=== PATIENT | female | born 1995 | race Caucasian/White ===

== ENCOUNTER 2016-07-29 11:33 | Emergency (ER) | payer MEDICAID ==
[2016-07-29 11:46] VITALS: BP 106/73
--- NOTE | 2016-07-29 12:37 | EDM.PDOC ---
ED HPI RENAL/ - General Chief Complaint: Genitourinary Problem Stated Complaint: PAINFUL URINATION Time Seen by Provider: 07/29/16 11:47 Source of Information: Reports: Patient History Limitations: Reports: No limitations - History of Present Illness INITIAL COMMENTS - FREE TEXT/NARRATIVE: Patient presents for evaluation treatment of dysuria. Patient reports that her symptoms have been present for about the last 2 weeks. She reports that this first started with malodorous, dark urine. She states that she then developed dysuria. She states she is drinking water and cranberry juice without any improvement. She noticed some sharp stabbing pain in the right lower quadrant radiating across her right flank and into her right back yesterday; none today. She has no current abdominal pain. She reports only current suprapubic pain. She denies any fevers, chills, nausea, vomiting, hematuria, vaginal discharge, diarrhea or constipation. She reports that she has some back pain but nothing out of the ordinary. She reports her last menstrual period was in May sometime. She reports a chance of . Timing/Duration: Reports: Week(s): (2) Location: Reports: suprapubic Associated Symptoms: Reports: dysuria. Denies: vaginal discharge, fever/chills , abdominal pain, nausea/vomiting, constipation, diarrhea - Related Data Allergies/ADRs: Allergies Allergy/AdvReac Type Severity Reaction Status Date / Time No Known Allergies Allergy Verified 07/29/16 11:45 Home Meds: Home Meds Nitrofurantoin Monohyd/M-Cryst [Macrobid 100 mg Capsule] 100 mg PO BID #14 capsule 07/29/16 [Rx] Phenazopyridine [Pyridium] 100 mg PO TID #9 tablet 07/29/16 [Rx] Past Medical History - Past Health History Medical/Surgical History: Denies Medical/Surgical History HEENT History: Reports: Impaired vision Cardiovascular History: Reports: None Respiratory History: Reports: None Gastrointestinal History: Reports: None Genitourinary History: Reports: Pyelonephritis, Other (see below) Other Genitourinary History: recurrent in childhood 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 Denies: discharge, hematuria Musculoskeletal: Reports: back pain ED EXAM, RENAL/ - Physical Exam Exam: See Below Exam Limited By: No limitations General Appearance: alert, WD/WN, no apparent distress Respiratory/Chest: no respiratory distress, lungs clear, normal breath sounds Cardiovascular: normal peripheral pulses, regular rate, rhythm, no murmur GI/Abdominal: normal bowel sounds, soft, non tender Back Exam: No: CVA tenderness (L), CVA tenderness (R) Neurological: alert, oriented, normal cognition Psychiatric: normal affect, normal mood Skin Exam: Warm, Dry, Normal color Course - Vital Signs Last Recorded V/S: Last Vital Signs Temp 36.5 C 07/29/16 11:42 Pulse 69 07/29/16 11:42 Resp 16 07/29/16 11:42 BP 106/73 07/29/16 11:42 Pulse Ox 100 07/29/16 11:42 - Orders/Labs/Meds Orders: Active Orders 24 hr Category Date Time Status CULTURE URINE [RM] Stat Lab 07/29/16 12:19 Ordered Labs: Laboratory Tests 07/29/16 07/29/16 Range/Units 12:00 12:00 Urine Color Yellow (Yellow) Urine Appearance Clear (Clear) Urine pH 6.5 (5.0-8.0) Ur Specific [place] 1.015 (1.005-1.030) Urine Protein Negative (Negative) Urine Glucose (UA) Negative (Negative) Urine Ketones Negative (Negative) Urine Occult Blood Negative (Negative) Urine Nitrite Negative (Negative) Urine Bilirubin Negative (Negative) Urine Urobilinogen 0.2 (0.2-1.0) Ur Leukocyte Esterase Trace H (Negative) Urine RBC Not seen (0-5) /hpf Urine WBC 0-5 (0-5) /hpf Ur Epithelial Cells 0-5 (0-5) /hpf Urine Bacteria Few (FEW) /hpf Urine Mucus Not seen (FEW) /hpf Urine HCG, Qual Negative (NEGATIVE) - Re-Assessments/Exams Free Text/Narrative Re-Assessment/Exam: 07/29/16 12:45 Ua had trace leuks. Negative for blood, nitrites, glucose and ketones. HCG is negative. Urine sent for culture. Will discharge home. Discharge instructions as documented. Departure - Departure Time of Disposition: 12:46 Disposition: Home, Self-Care 01 Condition: good Clinical Impression: UTI, Urinary tract infectious disease Prescriptions: Nitrofurantoin Monohyd/M-Cryst [Macrobid 100 mg Capsule] 100 mg PO BID #14 capsule Phenazopyridine [Pyridium] 100 mg PO TID #9 tablet Instructions: Urinary Tract Infection, Adult, [id number] Referrals: PCP,None [Ordering Only Provider] - Forms: ED Department Discharge Additional Instructions: Take the antibiotic as prescribed. 1 tab PO bid x 7 days. Pyridium tid x 3 days. Drink plenty of fluids. Follow-up with your PCP as needed. Please return to the ER should your symptoms change or worsen. - My Orders Last 24 Hours: My Active Orders 07/29/16 12:19 CULTURE URINE [RM] Stat - Assessment/Plan Last 24 Hours: My Active Orders 07/29/16 12:19 CULTURE URINE [RM] Stat
== END 2016-07-29 13:00 | disposition home or self-care (01) ==
LOC: JD.ED 11:33
DX: N39.0 Urinary tract infection, site not specified (principal)
CPT/HCPCS: 81001; 81025; 87086; 87088; 87186; 99283

== ENCOUNTER 2016-08-16 18:37 | Emergency (ER) | payer MEDICAID ==
[2016-08-16 19:09] VITALS: BP 115/74
--- NOTE | 2016-08-16 20:07 | EDM.PDOC ---
ED HPI RENAL/ - General Chief Complaint: Genitourinary Problem Stated Complaint: POSS KIDNEY INFECTION Time Seen by Provider: 08/16/16 20:06 Source of Information: Reports: Patient History Limitations: Reports: No limitations - History of Present Illness INITIAL COMMENTS - FREE TEXT/NARRATIVE: Patient presents for evaluation and treatment of urinary tract infection symptoms. She reports that her symptoms have been going on for the last 3 days. She currently complains of dysuria, darker urine and foul-smelling urine. she also reports flank pain. She denies any hematuria, fevers, nausea or vomiting. Patient reports that she has some chills but has been ill with colds and runny noses recently and feels that that is more likely the cause. Patient was seen by myself in the ER earlier this month. At that time she had a urinary tract infection was started on Macrobid. She states that she took this to completion. She states that she has been urinating after intercourse and wiping front to back. She is unsure why she is getting frequent urinary tract infections.. - Related Data Allergies/ADRs: Allergies Allergy/AdvReac Type Severity Reaction Status Date / Time No Known Allergies Allergy Verified 07/29/16 11:45 Home Meds: Home Meds Nitrofurantoin Monohyd/M-Cryst [Macrobid 100 mg Capsule] 100 mg PO BID #14 capsule 07/29/16 [Rx] Phenazopyridine [Pyridium] 100 mg PO TID #9 tablet 07/29/16 [Rx] Ciprofloxacin [Ciprofloxacin HCl] 500 mg PO BID #14 tablet 08/16/16 [Rx] Past Medical History - Past Health History Medical/Surgical History: Denies Medical/Surgical History HEENT History: Reports: Impaired vision Cardiovascular History: Reports: None Respiratory History: Reports: None Gastrointestinal History: Reports: None Genitourinary History: Reports: Pyelonephritis, Other (see below) 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 Denies: fever HEENT: Reports: Rhinitis GI/Abdominal: Denies: Nausea, Vomiting : Reports: dysuria, flank pain, other (Urine is darker and more foul-smelling than normal.). Denies: hematuria ED EXAM, RENAL/ - Physical Exam Exam: See Below Exam Limited By: No limitations General Appearance: alert, WD/WN, no apparent distress Respiratory/Chest: no respiratory distress, lungs clear, normal breath sounds Cardiovascular: normal peripheral pulses, regular rate, rhythm, no murmur GI/Abdominal: normal bowel sounds, soft, non tender Back Exam: normal inspection. No: CVA tenderness (L), CVA tenderness (R) Psychiatric: normal affect, normal mood Skin Exam: Warm, Dry Course - Vital Signs Last Recorded V/S: Last Vital Signs Temp 36.1 C 08/16/16 19:08 Pulse 68 08/16/16 19:08 Resp 20 08/16/16 19:08 BP 115/74 08/16/16 19:08 Pulse Ox 98 08/16/16 19:08 - Orders/Labs/Meds Labs: Laboratory Tests 08/16/16 Range/Units 19:30 Urine Color Yellow (Yellow) Urine Appearance Slt cloudy H (Clear) Urine pH 6.0 (5.0-8.0) Ur Specific [place] > or = 1.030 (1.005-1.030) Urine Protein 1+ H (Negative) Urine Glucose (UA) Negative (Negative) Urine Ketones Negative (Negative) Urine Occult Blood Negative (Negative) Urine Nitrite Positive H (Negative) Urine Bilirubin Negative (Negative) Urine Urobilinogen 0.2 (0.2-1.0) Ur Leukocyte Esterase Trace H (Negative) Urine RBC 0-5 (0-5) /hpf Urine WBC 30-40 H (0-5) /hpf Ur Squamous Epith Cells 5-10 H (0-5) /hpf Urine Bacteria Many H (FEW) /hpf Urine Mucus Few (FEW) /hpf - Re-Assessments/Exams Free Text/Narrative Re-Assessment/Exam: 08/16/16 20:21 UA has positive nitrites, trace leukocytes, many bacteria and 1+ protein. I will treat the patient for urinary tract infection. Started on ciprofloxacin as she was recently on Macrobid. I will some urine for culture. Discharge instructions as documented. Departure - Departure Time of Disposition: 20:23 Disposition: Home, Self-Care 01 Condition: good Clinical Impression: UTI, Urinary tract infectious disease Prescriptions: Ciprofloxacin [Ciprofloxacin HCl] 500 mg PO BID #14 tablet Instructions: Urinary Tract Infection, Adult Referrals: PCP,None [Ordering Only Provider] - Forms: ED Department Discharge Additional Instructions: Take the ciprofloxacin one tab twice a day for 7 days as prescribed. Drink plenty of fluids. Follow up with your primary care provider if you continue to have frequent urinary tract infections. Recommend Lida Painter at the [facility]. call [phone] to schedule with her. To prevent urinary tract infections next are you wiping front to back and urinate after intercourse. Please return to the ER should your symptoms change or worsen.
== END 2016-08-16 20:37 | disposition home or self-care (01) ==
LOC: JD.ED 18:37
DX: N39.0 Urinary tract infection, site not specified (principal)
CPT/HCPCS: 81001; 87086; 87088; 87186; 99283

== ENCOUNTER 2017-05-21 21:12 | Emergency (ER) | payer MEDICAID ==
[2017-05-21 21:34] VITALS: BP 99/72
--- NOTE | 2017-05-21 22:31 | EDM.PDOC ---
ED HPI GENERAL MEDICAL PROBLEM - General Chief Complaint: Back Pain or Injury Stated Complaint: BAD LOWER BACK PAIN Time Seen by Provider: 05/21/17 22:08 Source of Information: Reports: Patient History Limitations: Reports: No Limitations - History of Present Illness INITIAL COMMENTS - FREE TEXT/NARRATIVE: 21-year-old female presents for evaluation treatment of low back pain. Reportedly patient has had problems with low back pain for quite some time. She has seen a chiropractor in the past without much symptom relief. Reportedly the last day and a half the back pain has substantially worsened. She reports it is a strong pain in her lower back that is worse with movement. She has reports worse with standing. She has tried [id number] Motrin, Aleve, massage and heat wraps without any relief. She reports she did start a new job recently and has been lifting more than normal. She denies any fevers, coughs, dysuria, hematuria, change in urine odor color, bowel incontinence, urinary incontinence or numbness or tingling. She denies any radiation down to her legs. Patient reports she is currently on her menstrual cycles started yesterday. She states she did take a test about one week ago and was negative. Patient also complains of cramps in her bilateral arms and legs. Reports that she gets daily cramps in her lower legs from her knees down to her feet and from her elbows down into to her hands. States they last a few hours before they resolve on her own. She has never seen anybody about these. Primary care provider is Micki Bledsoe. Lower Back Pain Score (Numeric/FACES): 8 - Related Data Allergies Allergy/AdvReac Type Severity Reaction Status Date / Time No Known Allergies Allergy Verified 07/29/16 11:45 Home Meds: Home Meds Orphenadrine [Norflex] 100 mg PO BID PRN #20 tab.er 05/21/17 [Rx] Past Medical History - Past Health History Medical/Surgical History: Denies Medical/Surgical History HEENT History: Reports: Impaired Vision Cardiovascular History: Reports: None Respiratory History: Reports: None Gastrointestinal History: Reports: None Genitourinary History: Reports: Pyelonephritis, UTI, Recurrent Other Genitourinary History: recurrent in childhood 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: Musculoskeletal History: Reports: Back Pain, Chronic Oncologic (Cancer) History: Reports: None Social & Family History - Family History Family Medical History: Noncontributory - Tobacco Use Smoking Status *Q: Never Smoker Second Hand Smoke Exposure: No - Caffeine Use Caffeine Use: Reports: Coffee, Soda, Tea - Alcohol Use Days Per Week of Alcohol Use: 0 - Recreational Drug Use Recreational Drug Use: No ED ROS GENERAL - Review of Systems Review Of Systems: See Below Constitutional: Denies: Fever Respiratory: Denies: Cough GI/Abdominal: Denies: Stool Incontinence : Denies: Dysuria, Incontinence Musculoskeletal: Reports: Back Pain (low back), Muscle Pain (bilateral forearms and legs) Neurological: Denies: Numbness, Tingling ED EXAM,LOWER BACK PAIN/INJURY - Physical Exam Exam: See Below Exam Limited By: No Limitations General Appearance: Alert, WD/WN, No Apparent Distress, Obese Nose: Normal Inspection Throat/Mouth: Normal Inspection Neck: Normal Inspection, Supple, Non-Tender, Full Range of Motion Respiratory/Chest: No Respiratory Distress, Lungs Clear, Normal Breath Sounds Cardiovascular: Normal Peripheral Pulses, Regular Rate, Rhythm, No Murmur GI/Abdominal: Soft, Non-Tender Back Exam: Normal Inspection, Full Range of Motion, Paraspinal Tenderness ( bilateral SI joints). No: Vertebral Tenderness Extremities: Normal Inspection, Normal Range of Motion, Normal Capillary Refill Neurological: Alert, Normal Dorsiflexion, Normal Plantar Flexion, Normal Gait Psychiatric: Normal Affect, Normal Mood Skin Exam: Warm, Dry, Normal Color Course - Vital Signs Last Recorded V/S: Last Vital Signs Temp 36.4 C 05/21/17 21:32 Pulse 77 05/21/17 21:32 Resp 20 05/21/17 21:32 BP 99/72 05/21/17 21:32 Pulse Ox 99 05/21/17 21:32 - Orders/Labs/Meds Labs: Laboratory Tests 05/21/17 Range/Units 22:45 Sodium 142 (136-145) mEq/L Potassium 3.5 (3.5-5.1) mEq/L Chloride 106 (98-107) mEq/L Carbon Dioxide 29 (21-32) mEq/L Anion Gap 10.5 (5-15) BUN 10 (7-18) mg/dL Creatinine 0.9 (0.55-1.02) mg/dL Est Cr Clr Drug Dosing 82.48 mL/min Estimated GFR (MDRD) > 60 (>60) mL/min BUN/Creatinine Ratio 11.1 L (14-18) Glucose 78 (74-106) mg/dL Calcium 9.5 (8.5-10.1) mg/dL Magnesium 1.9 (1.8-2.4) mg/dl - Re-Assessments/Exams Free Text/Narrative Re-Assessment/Exam: 05/21/17 23:32 Offered an xray of the lumbar spine, however, I educated her this would likely not change my treatment plan and given she has had no injury to the back will likely not show an etiology for her pain. She therefore decided against obtaining the xray. I reviewed the labs with the patient. She is likely getting muscle cramps from dehydration and encouraged her to drink more. Follow-up with her PCP. Discharge instructions as documented. Departure - Departure Time of Disposition: 23:27 Disposition: Home, Self-Care 01 Condition: Good Clinical Impression: Low back pain - Discharge Information Prescriptions: Orphenadrine [Norflex] 100 mg PO BID PRN #20 tab.er PRN Reason: Muscle Spasm Instructions: Back Pain, Adult Referrals: Micki Bledsoe PA-C [Primary Care Provider] - Forms: ED Department Discharge Additional Instructions: Take the Norflex 1 tab twice a day as needed for muscle spasm. Take over-the- counter Tylenol or Motrin as needed for additional pain relief. Norflex can make you drowsy. Do not drive or operative machinery until you know how this medication will affect you. make sure you are drinking plenty of fluids. Follow-up with your primary care provider next week as planned. Please return to the ER if your symptoms change or worsen.
== END 2017-05-21 23:37 | disposition home or self-care (01) ==
LOC: JD.ED 21:12
DX: M54.5 Low back pain (principal)
CPT/HCPCS: 36415; 80048; 83735; 99283

== ENCOUNTER 2017-06-02 21:28 | Emergency (ER) | payer MEDICAID ==
[2017-06-02 22:26] VITALS: BP 115/98
[2017-06-02] MEDS ORDERED: Cephalexin 500 MG Cap PO ONE (22:28)
[2017-06-02] MEDS ORDERED: Doxycycline 100 MG Cap PO ONE (22:28)
--- NOTE | 2017-06-02 22:34 | EDM.PDOC ---
ED HPI GENERAL MEDICAL PROBLEM - General Chief Complaint: Skin Complaint Stated Complaint: RASH OVER BODY Time Seen by Provider: 06/02/17 22:27 Source of Information: Reports: Patient, Family (friend) History Limitations: Reports: No Limitations - History of Present Illness INITIAL COMMENTS - FREE TEXT/NARRATIVE: 21-year-old female presents the ED with a generalized erythematous rash that seems to be spreading. She has a new tattoo on her right forearm and she states rash seemed to start on her right forearm and then spread to the rest of her body. It is burning in quality. Is red and inflamed and maculopapular. She is not immunocompromise to her knowledge. Onset: Gradual Onset Date: 05/31/17 Duration: Day(s): (Started 2-3 days ago.) Location: Reports: Back (Right lower back and flank area.), Upper Extremity, Right Right Arm Pain Score (Numeric/FACES): 5 - Related Data Allergies Allergy/AdvReac Type Severity Reaction Status Date / Time No Known Allergies Allergy Verified 07/29/16 11:45 Home Meds: Home Meds Doxycycline [Vibramycin] 100 mg PO Q12HR #20 cap 06/02/17 [Rx] Sulfamethoxazole/Trimethoprim [Sulfamethoxazole-Tmp Ds Tablet] 1 each PO BID # 14 tablet 06/02/17 [Rx] Past Medical History - Past Health History Medical/Surgical History: Denies Medical/Surgical History HEENT History: Reports: Impaired Vision Cardiovascular History: Reports: None Respiratory History: Reports: None Gastrointestinal History: Reports: None Genitourinary History: Reports: Pyelonephritis, UTI, Recurrent Other Genitourinary History: recurrent in childhood 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: Musculoskeletal History: Reports: Back Pain, Chronic Oncologic (Cancer) History: Reports: None Social & Family History - Family History Family Medical History: Noncontributory - Tobacco Use Smoking Status *Q: Never Smoker Second Hand Smoke Exposure: No - Caffeine Use Caffeine Use: Reports: Coffee, Energy Drinks, Soda, Tea - Alcohol Use Days Per Week of Alcohol Use: 0 - Recreational Drug Use Recreational Drug Use: No - Living Situation & Occupation Living situation: Reports: Single Occupation: Employed ED ROS GENERAL - Review of Systems Review Of Systems: See Below Constitutional: Reports: No Symptoms HEENT: Reports: No Symptoms Respiratory: Reports: No Symptoms Cardiovascular: Reports: No Symptoms Endocrine: Reports: No Symptoms GI/Abdominal: Reports: No Symptoms : Reports: No Symptoms Musculoskeletal: Reports: No Symptoms Skin: Reports: No Symptoms Neurological: Reports: No Symptoms Psychiatric: Reports: No Symptoms Hematologic/Lymphatic: Reports: No Symptoms Immunologic: Reports: No Symptoms ED EXAM, SKIN/RASH Exam: See Below Exam Limited By: No Limitations General Appearance: Alert, WD/WN, No Apparent Distress Extremities: Other (Patient has a new tattoo on her right forearm and has multiple other tattoos on her arms.) Skin: Other ( is a maculopapular very erythematous reddened rash right forearm and right back primarily. There are some pustules evident. There is no active draining from these lesions. These are secondary to staph aureus folliculitis.) Course - Vital Signs Last Recorded V/S: Last Vital Signs Temp 36.2 C 06/02/17 22:24 Pulse 81 06/02/17 22:24 Resp 20 06/02/17 22:24 BP 115/98 H 06/02/17 22:24 Pulse Ox 100 06/02/17 22:24 - Orders/Labs/Meds Meds: Medications Discontinued Medications Generic Name Dose Route Start Last Admin Trade Name Freq PRN Reason Stop Dose Admin Cephalexin 1,000 mg 06/02/17 22:28 Keflex PO 06/02/17 22:29 ONETIME ONE Doxycycline Hyclate 200 mg 06/02/17 22:28 Vibramycin PO 06/02/17 22:29 ONETIME ONE - Radiology Interpretation Free Text/Narrative:: 21-year-old female presents to the ED with a skin rash getting worse over the last 2 and half days. She had a tattoo on May 31 on her right arm. Subsequently developed this erythematous maculopapular slightly pustular rash right forearm and right flank back and abdominal wall. Many of these have pustules compatible with a folliculitis. Rash is maculopapular and burning in quality. She'll be treated with doxycycline 100 mg twice daily for 10 days and Bactrim double strength 1 tablet twice a day for 7 days to clear up infection. Initial doses of antibiotic in the ED were 200 mg of doxycycline per ora and cephalexin 1 g per ora. Departure - Departure Time of Disposition: 22:29 Disposition: Home, Self-Care 01 Condition: Fair Clinical Impression: Staphylococcus aureus superficial folliculitis - Discharge Information Prescriptions: Doxycycline [Vibramycin] 100 mg PO Q12HR #20 cap Sulfamethoxazole/Trimethoprim [Sulfamethoxazole-Tmp Ds Tablet] 1 each PO BID # 14 tablet Referrals: Micki Bledsoe PA-C [Primary Care Provider] - Forms: ED Department Discharge Additional Instructions: Evaluation in the emergency room today in regards to development of a red follicular rash particularly on the arms and right flank and lower back. These have evidence of the underlying skin infection caused by Staphylococcus aureus which is on everybody's skin. It is spread around her body by toweling off after showering. This is how it spreads to different parts of her body. Treatment in is antibiotics doxycycline 100 mg twice daily for 10 days and Bactrim double strength tablet twice daily for 7 days. You should notice a dramatic improvement in 72 hours time. May take Motrin 600 mg every 6 hours for burning pain discomfort if needed.
== END 2017-06-02 22:49 | disposition home or self-care (01) ==
LOC: JD.ED 21:28
DX: L73.9 Follicular disorder, unspecified (principal); B95.61 Methicillin susceptible Staphylococcus aureus infection as the cause of diseases classified elsewhere
CPT/HCPCS: 99283; A9270

== ENCOUNTER 2017-07-04 13:46 | Emergency (ER) | payer MEDICAID ==
[2017-07-04 13:55] VITALS: BP 121/76
--- NOTE | 2017-07-04 14:24 | EDM.PDOC ---
ED HPI GENERAL MEDICAL PROBLEM - General Chief Complaint: Genitourinary Problem Stated Complaint: POSS UTI Time Seen by Provider: 07/04/17 14:24 Source of Information: Reports: Patient History Limitations: Reports: No Limitations - History of Present Illness INITIAL COMMENTS - FREE TEXT/NARRATIVE: 21-year-old female presents to the ED with dysuria urgency and frequency with no hematuria for the better part of a week. She states that she is prone to urinary tract infection. She believes she is . Last menstrual period was around May 19 and her cycles are usually pretty regular. Therefore she missed her cycle in May. test all of which were positive. She would be 3 para 2 if she is this time. It is pregnancies went over term but she delivered vaginally without any complications. She denies any fever or chills. She is developing right flank pain with a slight colicky component suggesting that she is developing a upper urinary tract infection. Appetite remains good. Onset: Gradual Onset Date: 06/27/17 Duration: Day(s): Location: Reports: Abdomen, Back (Suprapubic pressure discomfort with urgency frequency and dysuria now pain rating up her right flank. Right flank to just below her kidney.) Quality: Reports: Other (Urinary) Severity: Moderate (frequency with urgency and burning. 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: Other (see below) Other Treatments METAL FABRICATING SUPERVISOR: cranberry juice and water - Related Data Allergies Allergy/AdvReac Type Severity Reaction Status Date / Time No Known Allergies Allergy Verified 07/29/16 11:45 Home Meds: Home Meds Nitrofurantoin Monohyd/M-Cryst [Macrobid 100 mg Capsule] 100 mg PO BID #14 capsule 07/04/17 [Rx] PNV95/Ferrous Fumarate/FA [ Tablet] 1 tab PO DAILY 07/04/17 [History] Past Medical History - Past Health History Medical/Surgical History: Denies Medical/Surgical History HEENT History: Reports: Impaired Vision Cardiovascular History: Reports: None Respiratory History: Reports: None Gastrointestinal History: Reports: None Genitourinary History: Reports: Pyelonephritis, UTI, Recurrent Other Genitourinary History: recurrent in childhood MANAGER BALANCE History: Reports: (Suspect with 3 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.) : 3 (If is confirmed today.) Para: 2 (Delivered both previous children vaginally without complication) Musculoskeletal History: Reports: Back Pain, Chronic Oncologic (Cancer) History: Reports: None Social & Family History - Family History Family Medical History: Noncontributory - Tobacco Use Smoking Status *Q: Never Smoker Second Hand Smoke Exposure: No - Caffeine Use Caffeine Use: Reports: Coffee, Tea - Alcohol Use Days Per Week of Alcohol Use: 0 - Recreational Drug Use Recreational Drug Use: No - Living Situation & Occupation Living situation: Reports: Single Occupation: Employed ED ROS GENERAL - Review of Systems Review Of Systems: See Below Constitutional: Reports: Fatigue. Denies: Fever, Chills, Malaise, Weakness, Decreased Appetite, Weight Loss HEENT: Reports: No Symptoms Respiratory: Reports: No Symptoms Cardiovascular: Reports: No Symptoms Endocrine: Reports: Fatigue GI/Abdominal: Reports: Other : Reports: Dysuria, Frequency, Urgency, Other Musculoskeletal: Reports: Back Pain Skin: Reports: No Symptoms Neurological: Reports: No Symptoms Psychiatric: Reports: No Symptoms ED EXAM, RENAL/ - Physical Exam Exam: See Below Exam Limited By: No Limitations General Appearance: Alert, WD/WN, No Apparent Distress, Other (Afebrile with normal vital signs) Eye Exam: Bilateral Eye: Normal Inspection Respiratory/Chest: No Respiratory Distress, Lungs Clear, Normal Breath Sounds, Chest Non-Tender, Respiratory Distress Cardiovascular: Normal Peripheral Pulses, Regular Rate, Rhythm, No Edema, No Murmur, No Rub GI/Abdominal: Normal Bowel Sounds, Soft, Non-Tender, No Organomegaly, No Abnormal Bruit, No Mass, Pelvis Stable Back Exam: No: CVA Tenderness (L), CVA Tenderness (R) Extremities: Normal Inspection, Normal Range of Motion, Non-Tender, No Pedal Edema Neurological: Oriented, CN II-XII Intact, Normal Cognition, Normal Gait Psychiatric: Normal Affect, Normal Mood Skin Exam: Warm, Dry, Intact, Normal Color, No Rash Course - Vital Signs Last Recorded V/S: Last Vital Signs Temp 35.7 C 02/04/18 13:54 Pulse 93 07/04/17 13:54 Resp 20 07/04/17 13:54 BP 121/76 07/04/17 13:54 Pulse Ox 100 07/04/17 13:54 - Orders/Labs/Meds Orders: Active Orders 24 hr Category Date Time Status CULTURE URINE [RM] Stat Lab 07/04/17 17:08 Uncollected Labs: Laboratory Tests 07/04/17 07/04/17 07/04/17 Range/Units 14:35 14:56 14:56 WBC 13.87 H (3.98-10.04) K/mm3 RBC 4.80 (3.98-5.22) M/mm3 Hgb 14.0 (11.2-15.7) gm/L Hct 42.1 (34.1-44.9) % MCV 87.7 (79.4-94.8) fl MCH 29.2 (25.6-32.2) pg MCHC 33.3 (32.2-35.5) g/dl RDW Std Deviation 43.1 (36.4-46.3) fL Plt Count 323 (182-369) K/mm3 MPV 10.9 (9.4-12.3) fl Neutrophils % (Manual) 86 H (40-60) % Band Neutrophils % 0 (0-10) % Lymphocytes % (Manual) 9 L (20-40) % Atypical Lymphs % 2 % Monocytes % (Manual) 2 (2-10) % Eosinophils % (Manual) 1 (0.7-5.8) % Basophils % (Manual) 0 L (0.1-1.2) Platelet Estimate Adequate Plt Morphology Comment Normal RBC Morph Comment Normal Sodium 138 (136-145) mEq/L Potassium 3.6 (3.5-5.1) mEq/L Chloride 103 (98-107) mEq/L Carbon Dioxide 27 (21-32) mEq/L Anion Gap 11.6 (5-15) BUN 9 (7-18) mg/dL Creatinine 0.7 (0.55-1.02) mg/dL Est Cr Clr Drug Dosing 106.05 mL/min Estimated GFR (MDRD) > 60 (>60) mL/min BUN/Creatinine Ratio 12.9 L (14-18) Glucose 80 (74-106) mg/dL Calcium 9.3 (8.5-10.1) mg/dL Total Bilirubin 0.3 (0.2-1.0) mg/dL AST 24 (15-37) U/L ALT 30 (14-59) U/L Alkaline Phosphatase 85 (46-116) U/L Total Protein 8.1 (6.4-8.2) g/dl Albumin 3.9 (3.4-5.0) g/dl Globulin 4.2 gm/dL Albumin/Globulin Ratio 0.9 L (1-2) HCG, Qual (NEGATIVE) HCG, Quant 15341.0 mIU/mL Urine Color Yellow (Yellow) Urine Appearance Slt cloudy H (Clear) Urine pH 7.5 (5.0-8.0) Ur Specific [place] 1.020 (1.005-1.030) Urine Protein Trace H (Negative) Urine Glucose (UA) Negative (Negative) Urine Ketones 1+ H (Negative) Urine Occult Blood Negative (Negative) Urine Nitrite Negative (Negative) Urine Bilirubin Negative (Negative) Urine Urobilinogen 0.2 (0.2-1.0) Ur Leukocyte Esterase 1+ H (Negative) Urine RBC 0-5 (0-5) /hpf Urine WBC 20-30 H (0-5) /hpf Ur Epithelial Cells 0-5 (0-5) /hpf Urine Bacteria Many H (FEW) /hpf Urine Mucus Not seen (FEW) /hpf 07/04/17 Range/Units 14:56 WBC (3.98-10.04) K/mm3 RBC (3.98-5.22) M/mm3 Hgb (11.2-15.7) gm/L Hct (34.1-44.9) % MCV (79.4-94.8) fl MCH (25.6-32.2) pg MCHC (32.2-35.5) g/dl RDW Std Deviation (36.4-46.3) fL Plt Count (182-369) K/mm3 MPV (9.4-12.3) fl Neutrophils % (Manual) (40-60) % Band Neutrophils % (0-10) % Lymphocytes % (Manual) (20-40) % Atypical Lymphs % % Monocytes % (Manual) (2-10) % Eosinophils % (Manual) (0.7-5.8) % Basophils % (Manual) (0.1-1.2) Platelet Estimate Plt Morphology Comment RBC Morph Comment Sodium (136-145) mEq/L Potassium (3.5-5.1) mEq/L Chloride (98-107) mEq/L Carbon Dioxide (21-32) mEq/L Anion Gap (5-15) BUN (7-18) mg/dL Creatinine (0.55-1.02) mg/dL Est Cr Clr Drug Dosing mL/min Estimated GFR (MDRD) (>60) mL/min BUN/Creatinine Ratio (14-18) Glucose (74-106) mg/dL Calcium (8.5-10.1) mg/dL Total Bilirubin (0.2-1.0) mg/dL AST (15-37) U/L ALT (14-59) U/L Alkaline Phosphatase (46-116) U/L Total Protein (6.4-8.2) g/dl Albumin (3.4-5.0) g/dl Globulin gm/dL Albumin/Globulin Ratio (1-2) HCG, Qual Positive H (NEGATIVE) HCG, Quant mIU/mL Urine Color (Yellow) Urine Appearance (Clear) Urine pH (5.0-8.0) Ur Specific [place] (1.005-1.030) Urine Protein (Negative) Urine Glucose (UA) (Negative) Urine Ketones (Negative) Urine Occult Blood (Negative) Urine Nitrite (Negative) Urine Bilirubin (Negative) Urine Urobilinogen (0.2-1.0) Ur Leukocyte Esterase (Negative) Urine RBC (0-5) /hpf Urine WBC (0-5) /hpf Ur Epithelial Cells (0-5) /hpf Urine Bacteria (FEW) /hpf Urine Mucus (FEW) /hpf Meds: Medications Discontinued Medications Generic Name Dose Route Start Last Admin Trade Name Freq PRN Reason Stop Dose Admin Nitrofurantoin Macrocrystals 100 mg 07/04/17 16:41 07/04/17 16:59 Macrobid PO 07/04/17 16:42 100 mg ONETIME ONE Administration - Radiology Interpretation Free Text/Narrative:: 21-year-old female presents the ED with reported history of urinary frequency urgency and dysuria for the better part of a week. She denies fever or chills. She is having some mild right flank pain starting in her low back radiating up towards the kidney suggesting developing urinary tract infection the upper urinary tract. She has no costovertebral angle tenderness on palpation. Suprapubic tenderness only on examination of the abdomen. She also believes she is with 3 positive home. She test in the last week. Last trimester. Was May 19. Is usually pretty regular not time. She has had 2 previous term pregnancies delivered vaginally. Plan urinalysis. Labs will be CBC CMP and a hCG both qualitative and quantitative. - Re-Assessments/Exams Free Text/Narrative Re-Assessment/Exam: 07/04/17 16:38 Lab tests are back. White count is 13.87 i.e. elevated. White count is 86% neutrophils and no bands. Hemoglobin is 14.0 with hematocrit of 42.1 platelet counts 323,000. Sodium is 138 with a potassium of 3.6. Cord 103 with a bicarbonate 27. Anion gap is 11.6. BUNs 9 with a creatinine of 0.7. Estimated GFR is greater than 60. Glucose was 80. Calcium is 9.3. Liver function normal. HCG is positive and quantitative beta-hCG is 30,833 which correlates with a 5-6 week gestation.. Urinalysis shows trace protein 1+ ketones 1+ leukocyte esterase and 20-30 white blood cells per high-power field and many bacteria appreciated. Urine culture ordered. Departure - Departure Time of Disposition: 16:44 Disposition: Home, Self-Care 01 Condition: Fair Clinical Impression: First trimester , Urinary tract infection affecting care of mother in first trimester, antepartum - Discharge Information Prescriptions: Nitrofurantoin Monohyd/M-Cryst [Macrobid 100 mg Capsule] 100 mg PO BID #14 capsule Instructions: First Trimester of , [id number], Urinary Tract Infection, Adult Referrals: Micki Bledsoe PA-C [Primary Care Provider] - Forms: ED Department Discharge Additional Instructions: Evaluation in the Emergency room today does confirm urinary tract [id number] and first trimester . Labs suggest you are about 6-7 weeks . This correlates with your LNMP sdate. Estimated due date would be Feb 22. Need to take oral antibiotic Macrobid 100mg twice daily for another 7days to clear up infection. Expect marked improvement over the next 48 hrs. Follow up with MANAGER BALANCE in about 2 weeks time. - My Orders Last 24 Hours: My Active Orders 07/04/17 17:08 CULTURE URINE [RM] Stat - Assessment/Plan Last 24 Hours: My Active Orders 07/04/17 17:08 CULTURE URINE [RM] Stat
[2017-07-04] MEDS ORDERED: Nitrofurantoin Monohydrate/Macrocrystalline 100 MG Cap PO ONE (16:41)
== END 2017-07-04 17:00 | disposition home or self-care (01) ==
LOC: JD.ED 13:46
DX: O23.41 Unspecified infection of urinary tract in pregnancy, first trimester (principal)
CPT/HCPCS: 36415; 80053; 81001; 84702; 84703; 85025; 87086; 87088; 87186; 99283; A9270

== ENCOUNTER 2017-07-05 23:30 | Emergency (ER) | payer OTHER, MEDICAID ==
[2017-07-05 23:42] VITALS: BP 132/88
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
--- NOTE | 2017-07-06 06:44 | CR ---
Right hand: Four views of the right hand were obtained. Comparison: No prior hand exam. Small lee of bone is identified off the volar base of the middle phalanx of the third finger. This is felt compatible with very small avulsion fracture. No additional fracture or other bony abnormality is seen. Impression: 1. Minimal lee of bone compatible with small avulsion fracture off the volar base of the middle phalanx of the third finger. 2. No additional abnormality is identified on right hand exam. Diagnostic code #3
== END 2017-07-06 01:27 | disposition home or self-care (01) ==
LOC: JD.ED 23:30
DX: O9A.211 Injury, poisoning and certain other consequences of external causes complicating pregnancy, first trimester (principal); S62.612A Displaced fracture of proximal phalanx of right middle finger, initial encounter for closed fracture; Z3A.01 Less than 8 weeks gestation of pregnancy; V49.59XA Passenger injured in collision with other motor vehicles in traffic accident, initial encounter
CPT/HCPCS: 73130-26-RT; 73130-RT; 99283; 99284

== ENCOUNTER 2018-03-02 06:05 | Inpatient (IN) | payer MEDICAID ==
[2018-03-02] MEDS ORDERED: Sodium Chloride 0.9% 10 ML Syringe FLUSH PRN (20:14)
[2018-03-02] MEDS ORDERED: Nalbuphine 20 MG/ML 1 ML Syringe IVPUSH PRN (20:14)
[2018-03-02] MEDS ORDERED: Ondansetron 4 MG/2 ML SDV IVPUSH PRN (20:14)
[2018-03-02] MEDS ORDERED: Oxytocin/Lactated Ringers 10 UNIT/1,000 ML BAG IV SCH ×2 (20:15)
--- NOTE | 2018-03-02 20:49 | PCM.LDHP ---
L&D History of Present Illness - General Date of Service: 03/02/18 Admit Problem/Dx: Patient Status Order with Admit Dx/Problem 03/02/18 20:14 Patient Status [ADT] Routine Admission Diagnosis/Problem Admission Diagnosis/Problem Source of Information: Patient History Limitations: Reports: No Limitations - History of Present Illness Introduction:: Patient is a 22 y/o at 41 2/7 wks who presents for IOL for dates. Doing well today. No patterned contractions. Notes good FM. 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: : 3 Para: 2 LMP (Approximate): - Past Surgical History Other Surgical History Comment: No past surgical history Social & Family History - Family History Family Medical History: Noncontributory - Tobacco Use Smoking Status *Q: Never Smoker - Caffeine Use Caffeine Use: Reports: Coffee, Tea - Alcohol Use Alcohol Use History: No - Recreational Drug Use Recreational Drug Use: No - Living Situation & Occupation Living situation: Reports: Single Occupation: Employed [employer] Review of Systems - Review of Systems: Review Of Systems: See Below General: Reports: No Symptoms Pulmonary: Reports: No Symptoms Cardiovascular: Reports: No Symptoms Gastrointestinal: Reports: No Symptoms Genitourinary: Reports: No Symptoms Musculoskeletal: Reports: No Symptoms Psychiatric: Reports: No Symptoms L&D Exam - Exam Exam: See Below - Vital Signs Weight: 96.615 kg - OB Specific Contraction Intensity: Irritability Movement: Active Heart Tones: Present Heart Tones per Min: 135 Heart Rate (FHR) Variability: Moderate (6-25 bmp) Presentation: Vertex - Fields Score Fields Score Cervix Position: Posterior Fields Score Consistency: Soft Fields Score Effacement: 51-70% Fields Score Dilation: 1-2 cm Fields Score Infant's Station: -2 Fields Score Total: 6 - Exam General: Alert, Oriented, Cooperative Lungs: Clear to Auscultation, Normal Respiratory Effort Cardiovascular: Regular Rate, Regular Rhythm GI/Abdominal Exam: Soft, Non-Tender Genitourinary: Normal external exam Extremities: Normal Inspection Skin: Warm, Dry, Intact - Patient Data Lab Results Last 24 hrs: Laboratory Results - last 24 hr 03/02/18 Range/Units 20:29 WBC 12.63 H (3.98-10.04) K/mm3 RBC 3.99 (3.98-5.22) M/mm3 Hgb 11.6 (11.2-15.7) gm/L Hct 35.4 (34.1-44.9) % MCV 88.7 (79.4-94.8) fl MCH 29.1 (25.6-32.2) pg MCHC 32.8 (32.2-35.5) g/dl RDW Std Deviation 44.8 (36.4-46.3) fL Plt Count 187 (182-369) K/mm3 MPV 12.4 H (9.4-12.3) fl Neut % (Auto) 75.2 H (34.0-71.1) % Lymph % (Auto) 17.3 L (19.3-51.7) % [place] % (Auto) 6.6 (4.7-12.5) % Eos % (Auto) 0.6 L (0.7-5.8) Baso % (Auto) 0.1 (0.1-1.2) % Neut # (Auto) 9.50 H (1.56-6.13) K/mm3 Lymph # (Auto) 2.18 (1.18-3.74) K/mm3 [place] # (Auto) 0.83 H (0.24-0.36) K/mm3 Eos # (Auto) 0.08 (0.04-0.36) K/mm3 Baso # (Auto) 0.01 (0.01-0.08) K/mm3 Result Diagrams: 03/02/18 20:29 - Problem List (1) 41 weeks gestation of SNOMED Code(s): 44243626 ICD Code: Z3A.41 - 41 WEEKS GESTATION OF Status: Acute Current Visit: Yes (2) Rubella non-immune status, antepartum SNOMED Code(s): 944560137 ICD Code: O99.89 - OTH DISEASES AND CONDITIONS COMPL PREG/CHLDBRTH; Z28.3 - UNDERIMMUNIZATION STATUS Status: Acute Current Visit: Yes Problem List Initiated/Reviewed/Updated: Yes Orders Last 24hrs: Active Orders 24 hr Category Date Time Status Patient Status [ADT] Routine ADT 03/02/18 20:14 Active Activity as Tolerated [RC] PFP Care 03/02/18 20:14 Active Communication Order [RC] ASDIRECTED Care 03/02/18 20:14 Active Heart Tones [RC] ASDIRECTED Care 03/02/18 20:14 Active Non Stress Test [RC] PER UNIT ROUTINE Care 03/02/18 20:14 Active Notify Provider [RC] PFP Care 03/02/18 20:14 Active Notify Provider [RC] PRN Care 03/02/18 20:14 Active Peripheral IV Care [RC] . DIRECTED Care 03/02/18 20:14 Active Vital Signs [RC] PER UNIT ROUTINE Care 03/02/18 20:14 Active Regular Diet [DIET] Diet 03/02/18 Breakfast Active RAPID PLASMA REAGIN,RPR [CHEM] Routine Lab 03/02/18 20:29 Received TYPE AND SCREEN [BBK] Stat Lab 03/02/18 20:29 Received Lactated Ringers [Ringers, Lactated] 1,000 ml Med 03/02/18 20:15 Active IV ASDIRECTED Nalbuphine [Nubain] Med 03/02/18 20:14 Active 10 mg IVPUSH Q2H PRN Ondansetron [Zofran] Med 03/02/18 20:14 Active 4 mg IVPUSH Q4H PRN Oxytocin/Lactated Ringers [Pitocin in LR 10 Units/1,000 Med 03/02/18 20:15 Active ML] 10 unit in 1,000 ml IV .CONTINUOUS Oxytocin/Lactated Ringers [Pitocin in LR 10 Units/1,000 Med 03/02/18 20:15 Active ML] 10 unit in 1,000 ml IV TITRATE Sodium Chloride 0.9% [Saline Flush] Med 03/02/18 20:14 Active 10 ml FLUSH ASDIRECTED PRN Electronic Heart Tones Ext w TOCO [WOMSER] Oth 03/02/18 20:14 Ordered Routine Electronic Heart Tones Internal [WOMSER] Per Unit Oth 03/02/18 20:14 Ordered Routine Peripheral IV Insertion Adult [OM.PC] Routine Oth 03/02/18 20:14 Ordered Resuscitation Status Routine Resus Stat 03/02/18 20:14 Ordered Medication Orders Lactated Ringer's (Ringers, Lactated) 1,000 mls @ 100 mls/hr IV ASDIRECTED JAZMIN Oxytocin/Lactated Ringer's (Pitocin In Lr 10 Units/1,000 Ml) 10 unit in 1,000 mls @ 12 mls/hr IV TITRATE JAZMIN; Protocol Oxytocin/Lactated Ringer's (Pitocin In Lr 10 Units/1,000 Ml) 10 unit in 1,000 mls @ 500 mls/hr IV .CONTINUOUS JAZMIN Nalbuphine HCl (Nubain) 10 mg IVPUSH Q2H PRN PRN Reason: pain Ondansetron HCl (Zofran) 4 mg IVPUSH Q4H PRN PRN Reason: Nausea/Vomiting Sodium Chloride (Saline Flush) 10 ml FLUSH ASDIRECTED PRN PRN Reason: Keep Vein Open Assessment/Plan Comment:: 22 y/o at 41 2/7 wks who presents for IOL * Labs on admission * GBS negative, no need for antibiotics * AROM and pitocin for IOL * Pain management per patient preference * Anticipate
[2018-03-02] MEDS: Lactated Ringers 1,000 ML IV SCH ×2 (21:45→23:00)
[2018-03-02] MEDS ORDERED: ePHEDrine 50 MG/ML SDV IVPUSH PRN (22:31)
[2018-03-02] MEDS ORDERED: fentaNYL 100 MCG/2 ML SDV EPIDUR PRN (22:31)
[2018-03-02] MEDS ORDERED: diphenhydrAMINE 50 MG/ML SDV IVPUSH PRN (22:31)
--- NOTE | 2018-03-02 22:38 | PCM.PREANE ---
Preanesthetic Assessment - Procedure Proposed Procedure: rut - Anesthesia/Transfusion/Family Hx Anesthesia History: Prior Anesthesia Without Reaction Family History of Anesthesia Reaction: No Transfusion History: No Prior Transfusion(s) - Review of Systems General: No Symptoms Pulmonary: No Symptoms Cardiovascular: No Symptoms Gastrointestinal: No Symptoms Neurological: No Symptoms Other: Reports: None - Physical Assessment O2 Sat by Pulse Oximetry: 98 Respiratory Rate: 14 Vital Signs: Last Vital Signs Temp 98.9 F 03/02/18 20:14 Pulse 73 03/02/18 20:14 Resp 14 03/02/18 20:14 BP 123/73 03/02/18 20:14 Pulse Ox 98 03/02/18 20:14 Height: 5 ft 3 in Weight: 96.615 kg ASA Class: 2 Mental Status: Alert & Oriented x3 Airway Class: Mallampati = 1 Dentition: Reports: Normal Dentition Thyro-Mental Finger Breadths: 3 Mouth Opening Finger Breadths: 3 ROM/Head Extension: Full Lungs: Clear to Auscultation, Normal Respiratory Effort Cardiovascular: Regular Rate, Regular Rhythm - Lab Values: Laboratory Last Values WBC 12.63 K/mm3 (3.98-10.04) H 03/02/18 20:29 RBC 3.99 M/mm3 (3.98-5.22) 03/02/18 20:29 Hgb 11.6 gm/L (11.2-15.7) 03/02/18 20:29 Hct 35.4 % (34.1-44.9) 03/02/18 20: MCV 88.7 fl (79.4-94.8) 03/02/18 20: MCH 29.1 pg (25.6-32.2) 03/02/18 20: MCHC 32.8 g/dl (32.2-35.5) 03/02/18 20: RDW Std Deviation 44.8 fL (36.4-46.3) 03/02/18 20: Plt Count 187 K/mm3 (182-369) 03/02/18 20: MPV 12.4 fl (9.4-12.3) H 03/02/18 20: Neut % (Auto) 75.2 % (34.0-71.1) H 03/02/18 20: Lymph % (Auto) 17.3 % (19.3-51.7) L 03/02/18 20:29 [place] % (Auto) 6.6 % (4.7-12.5) 03/02/18 20:29 Eos % (Auto) 0.6 (0.7-5.8) L 03/02/18 20:29 Baso % (Auto) 0.1 % (0.1-1.2) 03/02/18 20:29 Neut # (Auto) 9.50 K/mm3 (1.56-6.13) H 03/02/18 20:29 Lymph # (Auto) 2.18 K/mm3 (1.18-3.74) 03/02/18 20:29 [place] # (Auto) 0.83 K/mm3 (0.24-0.36) H 03/02/18 20:29 Eos # (Auto) 0.08 K/mm3 (0.04-0.36) 03/02/18 20: Baso # (Auto) 0.01 K/mm3 (0.01-0.08) 03/02/18 20:29 Blood Type O POSITIVE 03/02/18 20: Gel Antibody Screen Negative 03/02/18 20:29 - Allergies Allergies/Adverse Reactions: Allergies Allergy/AdvReac Type Severity Reaction Status Date / Time No Known Allergies Allergy Verified 03/02/18 20: - Blood Blood Available: No - Acknowledgements Anesthesia Type Planned: Epidural Pt an Appropriate Candidate for the Planned Anesthesia: Yes Alternatives and Risks of Anesthesia Discussed w Pt/Guardian: Yes Pt/Guardian Understands and Agrees with Anesthesia Plan: Yes PreAnesthesia Questionnaire - Past Health History Medical/Surgical History: Denies Medical/Surgical History HEENT History: Reports: Impaired Vision Cardiovascular History: Reports: None Respiratory History: Reports: None Gastrointestinal History: Reports: None (with preg), GERD Genitourinary History: Reports: Pyelonephritis, UTI, Recurrent Other Genitourinary History: recurrent in childhood METAL BUFFER History: Reports: (Suspect with 3 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.) : 3 Para: 2 Musculoskeletal History: Reports: Back Pain, Chronic Neurological History: Reports: None Psychiatric History: Reports: None Endocrine/Metabolic History: Reports: Obesity/BMI 30+ Hematologic History: Reports: None Immunologic History: Reports: None Oncologic (Cancer) History: Reports: None Dermatologic History: Reports: None - SUBSTANCE USE Smoking Status *Q: Never Smoker Tobacco Use Within Last Twelve Months: No Second Hand Smoke Exposure: No Days Per Week of Alcohol Use: 0 Recreational Drug Use History: No - HOME MEDS Home Medications: Home Meds PNV95/Ferrous Fumarate/FA [ Tablet] 1 tab PO DAILY 07/04/17 [History] Cyclobenzaprine [Flexeril] 10 mg PO TID PRN 03/02/18 [History] Ferrous Sulfate [Iron] 325 mg PO DAILY 03/02/18 [History] - CURRENT (IN HOUSE) MEDS Current Meds: Current Medications Diphenhydramine HCl (Benadryl) 25 mg IVPUSH Q6H PRN PRN Reason: pruritis Ephedrine Sulfate (Ephedrine Sulfate) 5 mg IVPUSH ASDIRECTED PRN PRN Reason: Hypotension Fentanyl (Sublimaze) 100 mcg EPIDUR Q3H PRN PRN Reason: Pain Fentanyl/Bupivacaine HCl (Fentanyl/Bupivacaine/Ns 2 Mcg-0.125% 100 Ml) 100 ml EPIDUR ASDIRECTED JAZMIN Lactated Ringer's (Ringers, Lactated) 1,000 mls @ 100 mls/hr IV ASDIRECTED JAZMIN Last Admin: 03/02/18 21:45 Dose: 100 mls/hr Oxytocin/Lactated Ringer's (Pitocin In Lr 10 Units/1,000 Ml) 10 unit in 1,000 mls @ 12 mls/hr IV TITRATE JAZMIN; Protocol Last Admin: 03/02/18 21:45 Dose: 2 munits/min, 12 mls/hr Oxytocin/Lactated Ringer's (Pitocin In Lr 10 Units/1,000 Ml) 10 unit in 1,000 mls @ 500 mls/hr IV .CONTINUOUS JAZMIN Nalbuphine HCl (Nubain) 10 mg IVPUSH Q2H PRN PRN Reason: pain Ondansetron HCl (Zofran) 4 mg IVPUSH Q4H PRN PRN Reason: Nausea/Vomiting Sodium Chloride (Saline Flush) 10 ml FLUSH ASDIRECTED PRN PRN Reason: Keep Vein Open Discontinued Medications Influenza Virus Vaccine (Pharmacy To Dose - Influenza Vaccine) 1 each IM ONETIME ONE Stop: 03/02/18 20:53
[2018-03-02] MEDS ORDERED: Bupivacaine/fentaNYL/NS 100 ML Bag EPIDUR SCH (22:45)
[2018-03-03] MEDS: Lactated Ringers 1,000 ML IV SCH (00:52)
[2018-03-03] MEDS ORDERED: Bupivacaine 0.25% 10 ML SDV ONE (02:00)
[2018-03-03] MEDS ORDERED: Misoprostol 200 MCG Tab ONE (06:16)
[2018-03-03] MEDS ORDERED: Misoprostol 200 MCG Tab PO STA (06:40)
--- NOTE | 2018-03-03 06:40 | PCM.DEL ---
L & D Note - General Info Date of Service: 03/03/18 - Delivery Note Labor: Induced by ARM, Induced by Oxytocin Delivery Outcome: Livebirth Infant Delivery Method: Spontaneous Vaginal Delivery-Single Infant Delivery Mode: Spontaneous Presentation: Left Occiput Anterior (TERRY) Nuchal Cord: None Anesthesia Type: Epidural Amniotic Fluid Description: Clear Episiotomy Type: None Laceration: None Placenta: Intact, Spontaneous Cord: 3 Vessels Estimated Blood Loss: 350 Resuscitation Needed: Yes : Bulb Syringe, Stimulated, Warmed, [place] Used, Warmer Used Score 1 min: 8 Score 5 min: 9 Delivery Comments (Free Text/Narrative):: Patient found to be complete and began pushing. With maternal pushing effort head delivered from an TERRY presentation. No nuchal cord present. With gentle downward traction the shoulders and body delivered. placed on maternal abdomen. Cord clamped and cut. Cord blood obtained. Placenta allowed time to separate and expelled intact. Moderate amount of bleeding noted after this and so patient given 600 mcg of buccal cytotec with improvement in uterine tone - General Info Date of Service: 03/03/18 - Patient Data Vitals - Most Recent: Last Vital Signs Temp 37.2 C 03/02/18 20:14 Pulse 73 03/02/18 20:14 Resp 14 03/02/18 22:38 BP 123/73 03/02/18 20:14 Pulse Ox 98 03/02/18 22:38 Weight - Most Recent: 96.615 kg Lab Results Last 24 Hours: Laboratory Results - last 24 hr 03/02/18 03/02/18 Range/Units 20:29 20:29 WBC 12.63 H (3.98-10.04) K/mm3 RBC 3.99 (3.98-5.22) M/mm3 Hgb 11.6 (11.2-15.7) gm/L Hct 35.4 (34.1-44.9) % MCV 88.7 (79.4-94.8) fl MCH 29.1 (25.6-32.2) pg MCHC 32.8 (32.2-35.5) g/dl RDW Std Deviation 44.8 (36.4-46.3) fL Plt Count 187 (182-369) K/mm3 MPV 12.4 H (9.4-12.3) fl Neut % (Auto) 75.2 H (34.0-71.1) % Lymph % (Auto) 17.3 L (19.3-51.7) % [place] % (Auto) 6.6 (4.7-12.5) % Eos % (Auto) 0.6 L (0.7-5.8) Baso % (Auto) 0.1 (0.1-1.2) % Neut # (Auto) 9.50 H (1.56-6.13) K/mm3 Lymph # (Auto) 2.18 (1.18-3.74) K/mm3 [place] # (Auto) 0.83 H (0.24-0.36) K/mm3 Eos # (Auto) 0.08 (0.04-0.36) K/mm3 Baso # (Auto) 0.01 (0.01-0.08) K/mm3 Blood Type O POSITIVE Gel Antibody Screen Negative Med Orders - Current: Current Medications Diphenhydramine HCl (Benadryl) 25 mg IVPUSH Q6H PRN PRN Reason: pruritis Ephedrine Sulfate (Ephedrine Sulfate) 5 mg IVPUSH ASDIRECTED PRN PRN Reason: Hypotension Fentanyl (Sublimaze) 100 mcg EPIDUR Q3H PRN PRN Reason: Pain Last Admin: 03/02/18 22:56 Dose: 100 mcg Fentanyl/Bupivacaine HCl (Fentanyl/Bupivacaine/Ns 2 Mcg-0.125% 100 Ml) 100 ml EPIDUR ASDIRECTED JAZMIN Last Admin: 03/02/18 22:56 Dose: 100 ml Lactated Ringer's (Ringers, Lactated) 1,000 mls @ 100 mls/hr IV ASDIRECTED JAZMIN Last Admin: 03/03/18 00:52 Dose: 100 mls/hr Oxytocin/Lactated Ringer's (Pitocin In Lr 10 Units/1,000 Ml) 10 unit in 1,000 mls @ 12 mls/hr IV TITRATE JAZMIN; Protocol Last Titration: 03/03/18 06:30 Dose: 500 mls/hr Oxytocin/Lactated Ringer's (Pitocin In Lr 10 Units/1,000 Ml) 10 unit in 1,000 mls @ 500 mls/hr IV .CONTINUOUS JAZMIN Nalbuphine HCl (Nubain) 10 mg IVPUSH Q2H PRN PRN Reason: pain Ondansetron HCl (Zofran) 4 mg IVPUSH Q4H PRN PRN Reason: Nausea/Vomiting Sodium Chloride (Saline Flush) 10 ml FLUSH ASDIRECTED PRN PRN Reason: Keep Vein Open Discontinued Medications Influenza Virus Vaccine (Pharmacy To Dose - Influenza Vaccine) 1 each IM ONETIME ONE Stop: 03/02/18 20:53 Misoprostol (Cytotec) Confirm Administered Dose 600 mcg .ROUTE .STK-MED ONE Stop: 03/03/18 06:17 Last Admin: 03/03/18 06:30 Dose: 600 mcg - Problem List & Annotations (1) 41 weeks gestation of SNOMED Code(s): 05920755 Code(s): Z3A.41 - 41 WEEKS GESTATION OF Status: Acute Current Visit: Yes (2) Rubella non-immune status, antepartum SNOMED Code(s): 901108449 Code(s): O99.89 - OTH DISEASES AND CONDITIONS COMPL PREG/CHLDBRTH; Z28.3 - UNDERIMMUNIZATION STATUS Status: Acute Current Visit: Yes (3) Vaginal delivery SNOMED Code(s): 284180876 Code(s): O80 - ENCOUNTER FOR FULL-TERM UNCOMPLICATED DELIVERY Status: Acute Current Visit: Yes - Problem List Review Problem List Initiated/Reviewed/Updated: Yes - My Orders Last 24 Hours: My Active Orders 03/02/18 20:14 Patient Status [ADT] Routine Activity as Tolerated [RC] PFP Communication Order [RC] ASDIRECTED Heart Tones [RC] ASDIRECTED Non Stress Test [RC] PER UNIT ROUTINE Notify Provider [RC] PFP Notify Provider [RC] PRN Peripheral IV Care [RC] . DIRECTED Vital Signs [RC] PER UNIT ROUTINE Nalbuphine [Nubain] 10 mg IVPUSH Q2H PRN Ondansetron [Zofran] 4 mg IVPUSH Q4H PRN Sodium Chloride 0.9% [Saline Flush] 10 ml FLUSH ASDIRECTED PRN Electronic Heart Tones Ext w TOCO [WOMSER] Routine Electronic Heart Tones Internal [WOMSER] Per Unit Routine Peripheral IV Insertion Adult [OM.PC] Routine Resuscitation Status Routine 03/02/18 20:15 Lactated Ringers [Ringers, Lactated] 1,000 ml IV ASDIRECTED Oxytocin/Lactated Ringers [Pitocin in LR 10 Units/1,000 ML] 10 unit in 1,000 ml IV .CONTINUOUS Oxytocin/Lactated Ringers [Pitocin in LR 10 Units/1,000 ML] 10 unit in 1,000 ml IV TITRATE 03/02/18 20:29 RAPID PLASMA REAGIN,RPR [CHEM] Routine 03/02/18 Breakfast Regular Diet [DIET] - Assessment Assessment:: 22 y/o G3 now P3003 PPD#0 from at 41 3/7 wks - Plan Plan:: * Routine cares * Encourage breast feeding * MMR prior to discharge * Discharge home in 1-2 days
[2018-03-03] MEDS ORDERED: Docusate Sodium 100 MG Cap PO PRN (07:20)
[2018-03-03] MEDS ORDERED: Witch Hazel Medicated Pads 100/Jar TOP PRN (07:20)
[2018-03-03] MEDS ORDERED: Lanolin 100% Cream 7 GM Tube TOP PRN (07:20)
[2018-03-03] MEDS ORDERED: Benzocaine/Menthol 20%-0.5% Spray 56 GM Canister TOP PRN (07:20)
[2018-03-03] MEDS ORDERED: Ondansetron 4 MG/2 ML SDV ONE (07:55)
[2018-03-03] MEDS: Ibuprofen 600 MG Tab PO PRN (18:23)
[2018-03-03] MEDS ORDERED: Measles, Mumps & Rubella Vaccine 0.5 ML SDV SUBCUT ONE (20:50)
[2018-03-04] MEDS: Ibuprofen 600 MG Tab PO PRN ×3 (04:50→17:39)
--- NOTE | 2018-03-04 06:39 | PCM.PNPP ---
- General Info Date of Service: 03/04/18 Functional Status: Reports: Pain Controlled, Tolerating Diet, Ambulating, Urinating - Review of Systems General: Reports: No Symptoms Pulmonary: Reports: No Symptoms Cardiovascular: Reports: No Symptoms Gastrointestinal: Reports: No Symptoms Genitourinary: Reports: No Symptoms Musculoskeletal: Reports: No Symptoms Neurological: Reports: No Symptoms - Patient Data Vital Signs - Most Recent: Last Vital Signs Temp 36.4 C 03/04/18 03:25 Pulse 72 03/04/18 03:25 Resp 14 03/03/18 14:30 BP 99/61 03/04/18 03:25 Pulse Ox 97 03/04/18 03:25 Weight - Most Recent: 96.615 kg I&O - Last 24 Hours: Intake & Output 03/03/18 03/03/18 03/04/18 14:59 22:59 06:59 Intake Total 60 Balance 60 Lab Results - Last 24 Hours: Laboratory Results - last 24 hr 03/02/18 Range/Units 20:29 RPR Non-reactive (NONREACTIVE) Med Orders - Current: Current Medications Acetaminophen (Tylenol) 650 mg PO Q4H PRN PRN Reason: mild pain or fever Benzocaine/Menthol (Dermoplast Pain Relief [place]) 0 gm TOP ASDIRECTED PRN PRN Reason: Perineal Comfort Measure Last Admin: 03/03/18 09:00 Dose: 1 applic Docusate Sodium (Colace) 100 mg PO BID PRN PRN Reason: Constipation Emollient Ointment (Lansinoh Hpa) 0 gm TOP ASDIRECTED PRN PRN Reason: Sore Nipples Ibuprofen (Motrin) 600 mg PO Q6H PRN PRN Reason: Mild pain or fever Last Admin: 03/04/18 04:50 Dose: 600 mg Measles/Mumps/Rubella Vaccine Live (M-M-R Ii Vaccine) 0.5 ml SUBCUT .ONCE ONE Stop: 03/04/18 08:16 [place] (Tucks) 1 pad TOP ASDIRECTED PRN PRN Reason: Hemorrhoid pain Last Admin: 03/03/18 09:00 Dose: 1 applicful Discontinued Medications Bupivacaine HCl (Sensorcaine-Mpf 0.25%) 10 ml .ROUTE .STK-MED ONE Stop: 03/03/18 02:01 Diphenhydramine HCl (Benadryl) 25 mg IVPUSH Q6H PRN PRN Reason: pruritis Ephedrine Sulfate (Ephedrine Sulfate) 5 mg IVPUSH ASDIRECTED PRN PRN Reason: Hypotension Fentanyl (Sublimaze) 100 mcg EPIDUR Q3H PRN PRN Reason: Pain Last Admin: 03/02/18 22:56 Dose: 100 mcg Fentanyl/Bupivacaine HCl (Fentanyl/Bupivacaine/Ns 2 Mcg-0.125% 100 Ml) 100 ml EPIDUR ASDIRECTED JAZMIN Last Admin: 03/02/18 22:56 Dose: 100 ml Lactated Ringer's (Ringers, Lactated) 1,000 mls @ 100 mls/hr IV ASDIRECTED JAZMIN Last Infusion: 03/03/18 07:19 Dose: Infused Oxytocin/Lactated Ringer's (Pitocin In Lr 10 Units/1,000 Ml) 10 unit in 1,000 mls @ 12 mls/hr IV TITRATE JAZMIN; Protocol Last Titration: 03/03/18 07:18 Dose: Infused Oxytocin/Lactated Ringer's (Pitocin In Lr 10 Units/1,000 Ml) 10 unit in 1,000 mls @ 500 mls/hr IV .CONTINUOUS JAZMIN Influenza Virus Vaccine (Pharmacy To Dose - Influenza Vaccine) 1 each IM ONETIME ONE Stop: 03/02/18 20:53 Measles/Mumps/Rubella Vaccine Live (M-M-R Ii Vaccine) 0.5 ml SUBCUT .ONCE ONE Stop: 03/03/18 20:51 Last Admin: 03/03/18 21:05 Dose: 0.5 ml Misoprostol (Cytotec) Confirm Administered Dose 600 mcg .ROUTE .STK-MED ONE Stop: 03/03/18 06:17 Last Admin: 03/03/18 06:30 Dose: 600 mcg Misoprostol (Cytotec) 600 mcg PO NOW STA Stop: 03/03/18 06:41 Last Admin: 03/03/18 07:18 Dose: Not Given Nalbuphine HCl (Nubain) 10 mg IVPUSH Q2H PRN PRN Reason: pain Ondansetron HCl (Zofran) 4 mg IVPUSH Q4H PRN PRN Reason: Nausea/Vomiting Ondansetron HCl (Zofran) Confirm Administered Dose 4 mg .ROUTE .STK-MED ONE Stop: 03/03/18 07:56 Last Admin: 03/03/18 08:01 Dose: 4 mg Sodium Chloride (Saline Flush) 10 ml FLUSH ASDIRECTED PRN PRN Reason: Keep Vein Open - Interaction Disposition, : in Room with Family Interaction: Holding Infant Feeding: Bottle Fed Infant Support Person: Significant Other - Recovery Exam Fundal Tone: Firm Fundal Level: At Umbilicus Fundal Placement: Midline Lochia Amount: Small, Moderate Lochia Color: Rubra/Red Perineum Description: Intact, Minimal Bruising/Swelling Episiotomy/Laceration: None Bladder Status: Voiding Urinary Elimination: Voided - Exam General: Alert, Oriented, Cooperative GI/Abdominal Exam: Soft, Non-Tender Extremities: Normal Inspection Skin: Warm, Dry, Intact - Problem List & Annotations (1) 41 weeks gestation of SNOMED Code(s): 33345828 Code(s): Z3A.41 - 41 WEEKS GESTATION OF Status: Acute Current Visit: Yes (2) Rubella non-immune status, antepartum SNOMED Code(s): 196676776 Code(s): O99.89 - OTH DISEASES AND CONDITIONS COMPL PREG/CHLDBRTH; Z28.3 - UNDERIMMUNIZATION STATUS Status: Acute Current Visit: Yes (3) Vaginal delivery SNOMED Code(s): 959829903 Code(s): O80 - ENCOUNTER FOR FULL-TERM UNCOMPLICATED DELIVERY Status: Acute Current Visit: Yes - Problem List Review Problem List Initiated/Reviewed/Updated: Yes - My Orders Last 24 Hours: My Active Orders 03/03/18 07:20 Activity as Tolerated [RC] PER UNIT ROUTINE Vital Signs [RC] 2100,0300,0900,1500 Acetaminophen [Tylenol] 650 mg PO Q4H PRN Benzocaine/Menthol [Dermoplast Pain Relief [place]] See Dose Instructions TOP ASDIRECTED PRN Docusate Sodium [Colace] 100 mg PO BID PRN Ibuprofen [Motrin] 600 mg PO Q6H PRN Lanolin [Lansinoh HPA] See Dose Instructions TOP ASDIRECTED PRN Witch [place] [Tucks] 1 pad TOP ASDIRECTED PRN Assess Lochia [WOMSER] Per Unit Routine Assess Uterine Involution [WOMSER] Per Unit Routine Breast Pump [WOMSER] Per Unit Routine Heat Therapy [OM.PC] PRN Ice Therapy [OM.PC] Per Unit Routine Perineal Care [OM.PC] Per Unit Routine Peripheral IV Discontinue [OM.PC] Routine Sitz Bath [OM.PC] Per Unit Routine 03/03/18 Breakfast Regular Diet [DIET] 03/04/18 06:38 Ready for Discharge [RC] PER UNIT ROUTINE 03/04/18 07:20 Heat Therapy [OM.PC] PRN 03/04/18 08:15 Measles, Mumps & Rubella [M-M-R II Vaccine] 0.5 ml SUBCUT .ONCE ONE - Assessment Assessment:: 22 y/o G3 now P3003 PPD#1 from at 41 3/7 wks - Plan Plan:: * Routine cares * Encourage breast feeding * MMR prior to discharge * Discharge home today vs tomorrow
[2018-03-04] MEDS ORDERED: Measles, Mumps & Rubella Vaccine 0.5 ML SDV SUBCUT ONE (08:15)
[2018-03-04] MEDS: Acetaminophen 325 MG Tab PO PRN ×3 (09:30→21:37)
[2018-03-05] MEDS: Ibuprofen 600 MG Tab PO PRN (00:46)
--- NOTE | 2018-03-05 04:42 | PCM.PNPP ---
- General Info Date of Service: 03/05/18 Functional Status: Reports: Pain Controlled, Tolerating Diet, Ambulating - Review of Systems General: Reports: No Symptoms Pulmonary: Reports: No Symptoms Cardiovascular: Reports: No Symptoms Gastrointestinal: Reports: No Symptoms Genitourinary: Reports: No Symptoms Musculoskeletal: Reports: No Symptoms Neurological: Reports: No Symptoms - Patient Data Vital Signs - Most Recent: Last Vital Signs Temp 36.8 C 03/04/18 20:50 Pulse 68 03/04/18 20:50 Resp 16 03/04/18 20:50 BP 115/55 L 03/04/18 20:50 Pulse Ox 100 03/04/18 20:50 Weight - Most Recent: 96.615 kg Med Orders - Current: Current Medications Acetaminophen (Tylenol) 650 mg PO Q4H PRN PRN Reason: mild pain or fever Last Admin: 03/04/18 21:37 Dose: 650 mg Benzocaine/Menthol (Dermoplast Pain Relief [place]) 0 gm TOP ASDIRECTED PRN PRN Reason: Perineal Comfort Measure Last Admin: 03/03/18 09:00 Dose: 1 applic Docusate Sodium (Colace) 100 mg PO BID PRN PRN Reason: Constipation Emollient Ointment (Lansinoh Hpa) 0 gm TOP ASDIRECTED PRN PRN Reason: Sore Nipples Ibuprofen (Motrin) 600 mg PO Q6H PRN PRN Reason: Mild pain or fever Last Admin: 03/05/18 00:46 Dose: 600 mg Witch [place] (Tucks) 1 pad TOP ASDIRECTED PRN PRN Reason: Hemorrhoid pain Last Admin: 03/03/18 09:00 Dose: 1 applicful Discontinued Medications Bupivacaine HCl (Sensorcaine-Mpf 0.25%) 10 ml .ROUTE .STK-MED ONE Stop: 03/03/18 02:01 Diphenhydramine HCl (Benadryl) 25 mg IVPUSH Q6H PRN PRN Reason: pruritis Ephedrine Sulfate (Ephedrine Sulfate) 5 mg IVPUSH ASDIRECTED PRN PRN Reason: Hypotension Fentanyl (Sublimaze) 100 mcg EPIDUR Q3H PRN PRN Reason: Pain Last Admin: 03/02/18 22:56 Dose: 100 mcg Fentanyl/Bupivacaine HCl (Fentanyl/Bupivacaine/Ns 2 Mcg-0.125% 100 Ml) 100 ml EPIDUR ASDIRECTED JAZMIN Last Admin: 03/02/18 22:56 Dose: 100 ml Lactated Ringer's (Ringers, Lactated) 1,000 mls @ 100 mls/hr IV ASDIRECTED JAZMIN Last Infusion: 03/03/18 07:19 Dose: Infused Oxytocin/Lactated Ringer's (Pitocin In Lr 10 Units/1,000 Ml) 10 unit in 1,000 mls @ 12 mls/hr IV TITRATE JAZMIN; Protocol Last Titration: 03/03/18 07:18 Dose: Infused Oxytocin/Lactated Ringer's (Pitocin In Lr 10 Units/1,000 Ml) 10 unit in 1,000 mls @ 500 mls/hr IV .CONTINUOUS JAZMIN Influenza Virus Vaccine (Pharmacy To Dose - Influenza Vaccine) 1 each IM ONETIME ONE Stop: 03/02/18 20:53 Measles/Mumps/Rubella Vaccine Live (M-M-R Ii Vaccine) 0.5 ml SUBCUT .ONCE ONE Stop: 03/04/18 08:16 Last Admin: 03/04/18 14:19 Dose: 0.5 ml Measles/Mumps/Rubella Vaccine Live (M-M-R Ii Vaccine) 0.5 ml SUBCUT .ONCE ONE Stop: 03/03/18 20:51 Last Admin: 03/03/18 21:05 Dose: 0.5 ml Misoprostol (Cytotec) Confirm Administered Dose 600 mcg .ROUTE .STK-MED ONE Stop: 03/03/18 06:17 Last Admin: 03/03/18 06:30 Dose: 600 mcg Misoprostol (Cytotec) 600 mcg PO NOW STA Stop: 03/03/18 06:41 Last Admin: 03/03/18 07:18 Dose: Not Given Nalbuphine HCl (Nubain) 10 mg IVPUSH Q2H PRN PRN Reason: pain Ondansetron HCl (Zofran) 4 mg IVPUSH Q4H PRN PRN Reason: Nausea/Vomiting Ondansetron HCl (Zofran) Confirm Administered Dose 4 mg .ROUTE .STK-MED ONE Stop: 03/03/18 07:56 Last Admin: 03/03/18 08:01 Dose: 4 mg Sodium Chloride (Saline Flush) 10 ml FLUSH ASDIRECTED PRN PRN Reason: Keep Vein Open - Interaction Disposition, : in Room with Family Interaction: Holding Infant Feeding: Bottle Fed Support Person: Significant Other - Recovery Exam Fundal Tone: Firm Fundal Level: 2 Fingerbreadths Below Umbilicus Fundal Placement: Midline Lochia Amount: Small Lochia Color: Rubra/Red Perineum Description: Intact, Minimal Bruising/Swelling Episiotomy/Laceration: None Bladder Status: Voiding Urinary Elimination: Voided - Exam General: Alert, Oriented, Cooperative GI/Abdominal Exam: Soft, Non-Tender Extremities: Normal Inspection Skin: Warm, Dry, Intact - Problem List & Annotations (1) 41 weeks gestation of SNOMED Code(s): 51508714 Code(s): Z3A.41 - 41 WEEKS GESTATION OF Status: Acute Current Visit: Yes (2) Rubella non-immune status, antepartum SNOMED Code(s): 300294666 Code(s): O99.89 - OTH DISEASES AND CONDITIONS COMPL PREG/CHLDBRTH; Z28.3 - UNDERIMMUNIZATION STATUS Status: Acute Current Visit: Yes (3) Vaginal delivery SNOMED Code(s): 927013956 Code(s): O80 - ENCOUNTER FOR FULL-TERM UNCOMPLICATED DELIVERY Status: Acute Current Visit: Yes - Problem List Review Problem List Initiated/Reviewed/Updated: Yes - My Orders Last 24 Hours: My Active Orders 03/04/18 06:38 Ready for Discharge [RC] PER UNIT ROUTINE 03/04/18 07:20 Heat Therapy [OM.PC] PRN 03/05/18 04:41 Ready for Discharge [RC] PER UNIT ROUTINE - Assessment Assessment:: 22 y/o G3 now P3003 PPD#2 from at 41 3/7 wks - Plan Plan:: * Routine cares * Encourage breast feeding * MMR prior to discharge * Discharge home today
[2018-03-05 13:21] VITALS: BP 129/74
== END 2018-03-05 12:05 | disposition home or self-care (01) | DRG 807 ==
LOC: JD.OB 06:05 → OBSVTOIN 03-03 06:05 → JD.OB 03-03 06:06
PROVIDERS: ADMIT Obstetrics & Gynecology; ATTEND Obstetrics & Gynecology
PROC: 00HU33Z Insertion of Infusion Device into Spinal Canal, Percutaneous Approach (ICD-10-PCS; 2018-03-02)
PROC: 3E0R3BZ Introduction of Anesthetic Agent into Spinal Canal, Percutaneous Approach (ICD-10-PCS; 2018-03-02)
PROC: 10E0XZZ Delivery of Products of Conception, External Approach (ICD-10-PCS; principal; 2018-03-03)
PROC: 0KQM0ZZ Repair Perineum Muscle, Open Approach (ICD-10-PCS; 2018-03-03)
PROC: 6A550ZT Pheresis of Cord Blood Stem Cells, Single (ICD-10-PCS; 2018-03-03)
PROC: 10907ZC Drainage of Amniotic Fluid, Therapeutic from Products of Conception, Via Natural or Artificial Opening (ICD-10-PCS; 2018-03-03)
PROC: 3E033VJ Introduction of Other Hormone into Peripheral Vein, Percutaneous Approach (ICD-10-PCS; 2018-03-03)
PROC: 3E02340 Introduction of Influenza Vaccine into Muscle, Percutaneous Approach (ICD-10-PCS; 2018-03-03)
PROC: 3E0234Z Introduction of Serum, Toxoid and Vaccine into Muscle, Percutaneous Approach (ICD-10-PCS; 2018-03-03)
DX: O48.0 Post-term pregnancy (principal); Z37.0 Single live birth; Z3A.41 41 weeks gestation of pregnancy; Z87.440 Personal history of urinary (tract) infections; Z23 Encounter for immunization; O70.1 Second degree perineal laceration during delivery; O99.214 Obesity complicating childbirth; E66.9 Obesity, unspecified
CPT/HCPCS: 36415; 51702; 59025; 59409; 85025; 86592; 86850; 86900; 86901; 90471; 90686; 90707; A9270-GY; J2405; J2590; J3010; J3490; J7120

== ENCOUNTER 2025-02-26 16:29 | Emergency (ER) | payer BC ==
[2025-02-26] MEDS ORDERED: Ondansetron 4 MG/2 ML SDV IVPUSH ONE (16:45)
[2025-02-26 18:34] VITALS: BP 126/79; PULSE 88
== END 2025-02-26 17:55 | disposition home or self-care (01) ==
LOC: JD.ED 16:29
DX: S06.0X9A Concussion with loss of consciousness of unspecified duration, initial encounter (principal); S01.01XA Laceration without foreign body of scalp, initial encounter; E66.9 Obesity, unspecified; Z79.899 Other long term (current) drug therapy; W20.8XXA Other cause of strike by thrown, projected or falling object, initial encounter
CPT/HCPCS: 12001; 70450; 72125; 99284; A9270